=== PATIENT | female | born 1965 | race Caucasian/White ===

== ENCOUNTER 2017-04-09 16:24 | Outpatient (CLI) | payer SELFPAY | END 2017-04-09 16:25 | disposition short-term general hospital (02) | LOC: EMS 16:24 | PROVIDERS: ATTEND Surgery | DX: R53.1 Weakness (principal); R11.10 Vomiting, unspecified | CPT/HCPCS: A0425; A0429 ==

== ENCOUNTER 2017-10-06 18:40 | Emergency (ER) | payer OTHER ==
[2017-10-06] MEDS ORDERED: LIDOCAINE PATCH 5% TOP STA (20:14)
[2017-10-06] MEDS ORDERED: ACETAMINOPHEN 325 MG TABLET PO STA (20:14)
--- NOTE | 2017-10-06 21:04 | XRAY Report ---
Procedure Date: 10/06/2017 Accession Number: [id number] / [id number] Procedure: XR - Thoracic Spine 2 View CPT Code: FULL RESULT: EXAM: THORACIC SPINE RADIOGRAPHY EXAM DATE: 10/06/2017 08:25 PM. CLINICAL HISTORY: Upper thoracic spine pain after an iron fell on back one week ago. COMPARISON: None. TECHNIQUE: 3 views. FINDINGS: Alignment: Mild kyphosis centered at T8. Bones: Old very mild anterior wedging T5-T8. Trabecular and cortical patterns are intact. Disks: Mild narrowing, minimal subcortical sclerosis and tiny osteophytes mid third thoracic disks. Soft Tissues: Normal. The visualized lungs and cardiomediastinal silhouette are normal. IMPRESSION: 1. No acute bony abnormality. 2. Old mild anterior wedging and degenerative disk disease mid third of the mildly kyphotic thoracic spine. RADIA
--- NOTE | 2017-10-06 21:15 | ED Physician Documentation ---
PD HPI BACK INJURY - Stated complaint Stated Complaint: NECK PX - History obtained from History obtained from: Patient - History of Present Illness Location: Upper Type of injury: Blunt / blow Where injury occurred: Work Timing - onset: How many days ago (2) Timing - details: Abrupt onset, Still present Quality: Pain Recently seen: Not recently seen - Additional information Additional information: Patient is a 52 year old female with no significant past medical history who is presenting to the emergency department for back pain after being hit by an iron at work. Patient states it fell out of closet and hit her in her upper back. Now she has pain with lifting. Patient did go to work yesterday because she could not get coverage. Patient denies loc or any other trauma at this time. 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: section HEENT: Tonsil/Adenoidectomy - Present Medications Home Medications: Ambulatory Orders Medication Instructions Recorded Confirmed Lidocaine Patch 5% [Lidoderm Patch] 1 each TOP DAILY #14 patch 10/06/17 - Allergies Allergies/Adverse Reactions: Allergies Allergy/AdvReac Type Severity Reaction Status Date / Time NSAIDS (Non-Steroidal Allergy Unknown Verified 10/06/17 19:04 Anti-Inflamma - Social History Does the pt smoke?: No Smoking Status: Never smoker Does the pt drink ETOH?: No Does the pt have substance abuse?: No PD ED PE NORMAL - Vitals Vital signs reviewed: Yes - General General: Alert and oriented X 3 - HEENT HEENT: Atraumatic - Cardiac Cardiac: RRR - Respiratory Respiratory: No respiratory distress - Abdomen Abdomen: Non distended - Derm Derm: Normal color - Extremities Extremities: No deformity PD ED PE EXPANDED - Back Back: Vertebral tenderness (tenderness to palpation of upper thoracic region, no step offs appreciated) Results - Vitals Vitals: Vital Signs - 24 hr 10/06/17 18:45 Temperature 36.1 C L Heart Rate 76 Respiratory 16 Rate Blood Pressure 132/77 H O2 Saturation 99 Oxygen O2 Source Room air - Rads (name of study) thoracic spine Radiology: Final report received (no acute fracture or dislocation) PD MEDICAL DECISION MAKING - ED course Complexity details: reviewed old records, reviewed results, re-evaluated patient , considered differential, d/w patient ED course: patient was seen and examined at bedside. patient was treated with tylenol and lidoderm patch. imaging was ordered. when patient returned from imaging the results were reviewed. there was no acute fracture or dislocation. patient required no further work up at this time and was stable for discharge with outpatient follow up. - Sepsis Event Vital Signs: Vital Signs - 24 hr 10/06/17 18:45 Temperature 36.1 C L Heart Rate 76 Respiratory 16 Rate Blood Pressure 132/77 H O2 Saturation 99 Oxygen O2 Source Room air Departure - Departure Disposition: 01 Home, Self Care Clinical Impression: Contusion, back Condition: Good Instructions: ED Contusion Back Follow-Up: primary,care provider [Other] - As Needed Prescriptions: Lidocaine Patch 5% [Lidoderm Patch] 1 each TOP DAILY #14 patch Comments: Your diagnostics today were within normal limits. there is no acute fracture or dislocation. you can take tylenol as needed for pain as well as ice and heat. you can apply lidoderm patches as well. It is important that you stay active so to help avoid muscle spasm. you should follow up with your doctor if your symptoms persist. Forms: Activity restrictions
[2017-10-06 21:24] VITALS: BP 120/77
== END 2017-10-06 21:24 | disposition home or self-care (01) ==
LOC: ED 18:40
DX: S20.229A Contusion of unspecified back wall of thorax, initial encounter (principal); W20.8XXA Other cause of strike by thrown, projected or falling object, initial encounter; Y99.0 Civilian activity done for income or pay
CPT/HCPCS: 72070; 99283; A9270; 1040M

== ENCOUNTER 2018-05-18 17:17 | Emergency (ER) | payer OTHER ==
[2018-05-18 17:35] VITALS: BP 136/84
--- NOTE | 2018-05-18 17:53 | ED Physician Documentation ---
PD HPI LOWER EXT INJURY - Stated complaint Stated Complaint: R KNEE PX - Chief complaint Chief Complaint: Ext Problem - History obtained from History obtained from: Patient - History of Present Illness PD HPI LOW EXT INJURY LOCATION: Right, Knee Type of injury: Blunt / blow (She states a door at work was forcefully open and struck her on the anterolateral aspect of the right knee. She had localized swelling and pain. She is having difficulty with walking on it. She states it hurts and feels somewhat locked for flexion and feels like it needs to "pop". She is continue with pain on it and limping and having limited range of motion for the past couple of days.) Timing - onset: How many days ago (2) Timing - duration: Days (2) Timing - details: Abrupt onset, Still present Improved by: Rest. No: Ice Worsened by: Moving, Palpating, Other (walking) Associated symptoms: Swelling. No: Weakness, Numbness Similar symptoms before: Has not had sx before Recently seen: Not recently seen Review of Systems Constitutional: denies: Fever, Myalgias Skin: denies: Abrasion (s), Laceration (s) Musculoskeletal: denies: Back pain Neurologic: reports: Numbness (some on anterior right lower leg.). 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: section, Tubal ligation HEENT: Tonsil/Adenoidectomy - Present Medications Home Medications: Ambulatory Orders Medication Instructions Recorded Confirmed Tramadol HCl 50 mg PO Q6H PRN #15 tablet 05/18/18 - Allergies Allergies/Adverse Reactions: Allergies Allergy/AdvReac Type Severity Reaction Status Date / Time NSAIDS (Non-Steroidal Allergy Unknown Verified 05/18/18 17:35 Anti-Inflamma - Social History Does the pt smoke?: No Smoking Status: Never smoker Does the pt drink ETOH?: No Does the pt have substance abuse?: No - Immunizations Immunizations are current?: Yes PD ED PE NORMAL - Vitals Vital signs reviewed: Yes - General General: Alert and oriented X 3, No acute distress, Well developed/nourished - Back Back: No spinal TTP - Derm Derm: Normal color, Warm and dry - Extremities Extremities: Other (right knee with anterior swelling and anterior effusion. No articular effusion per se. Tenderness anteriorly. She can extend the leg and is holding it fairly straight. Says it hurts to flex the knee. Passive ROM guarded. No noted laxity nor pain with ligament testing, but unable to really get flexed/unguarded exam. ) - Neuro Neuro: Alert and oriented X 3, No motor deficit, No sensory deficit Results - Vitals Vitals: Vital Signs - 24 hr 05/18/18 17:28 Temperature 36.7 C Heart Rate 87 Respiratory 16 Rate Blood Pressure 136/84 H O2 Saturation 99 Oxygen O2 Source Room air - Rads (name of study) right knee Radiology: Prelim report reviewed (No fractures. There are anterior and post erior loose bodies on lateral view and these are also seen on other views that are rounded and smooth and appear old osteochondral injury. They do not appear to be new fractures.), See rad report PD MEDICAL DECISION MAKING - ED course Complexity details: reviewed results, considered differential (Anterior knee contusion. However she has more significant pain with walking and flexing than would be expected with just the bruising. X-ray did not show any obvious fractures. There is some arthritic changes and loose bodies. I would consider the possibility of meniscal injury or even some locking type mechanism with the loose bodies. We will put her in a knee brace and crutches with some pain medicines and have her follow-up with orthopedics later this week.), d/w patient ED course: Minimal standing and walking for 5-6 days. Knee brace when up and around and crutches as needed until follow-up. Departure - Departure Disposition: 01 Home, Self Care Clinical Impression: Contusion of right knee Qualifiers: Encounter type: initial encounter Qualified Code(s): S80.01XA - Contusion of right knee, initial encounter Acute meniscal injury of knee Qualifiers: Encounter type: initial encounter Laterality: right Qualified Code(s): S83.8X1A - Sprain of other specified parts of right knee, initial encounter Condition: Stable Record reviewed to determine appropriate education?: Yes Instructions: ED Meniscal Injury Knee Poss Follow-Up: [facility] [Provider Group] Prescriptions: Tramadol HCl 50 mg PO Q6H PRN #15 tablet PRN Reason: Pain Print Language: Yi Comments: There are no fractures seen on your x-ray. You do have some signs of some prior arthritis in the knee and this may be causing extra pain in it from the injury. The x-ray does not show other tissue and there such as the cartilage. You may have some injury of the cartilage and causing the difficulty with movement. We will have you use the knee brace when up and around and crutches to take off some of the weight. Use Tylenol or tramadol if needed for pains. Call the orthopedic office tomorrow for a follow-up appointment later this week or early next week to reassess the knee after the swelling has gone down. Forms: Activity restrictions
--- NOTE | 2018-05-18 19:10 | XRAY Report ---
Reason: trauma Procedure Date: 05/18/2018 Accession Number: [id number] / [id number] Procedure: XR - Knee 4 View RT CPT Code: FULL RESULT: EXAM: RIGHT KNEE RADIOGRAPHY EXAM DATE: 05/18/2018 06:22 PM. CLINICAL HISTORY: Trauma. COMPARISON: None available. TECHNIQUE: 4 views. FINDINGS: Bones: No acute fracture or dislocation. Fabella in the popliteal fossa. Joints: Trace joint effusion. There is narrowing of the medial and patellofemoral joint spaces with small marginal osteophyte formation. There are rounded ossified densities measuring up to 5 mm projecting in the anterior and posterior joint recesses. Soft Tissues: Unremarkable. IMPRESSION: No acute fracture or dislocation of the right knee. Trace joint effusion. Probable ossified intracapsular bodies, which may represent changes from remote trauma or possibly synovial osteochondromatosis. This could be further evaluated with MRI. Mild to moderate degenerative joint disease. Kellgren Holger Grade 2. Kellgren and Holger classification of osteoarthritis: Grade 0: no radiographic features of osteoarthritis are present Grade 1: doubtful joint space narrowing (JSN) and possible osteophytic lipping Grade 2: definite osteophytes and possible JSN on anteroposterior weight-bearing radiograph Grade 3: multiple osteophytes, definite JSN, sclerosis, possible bony deformity Grade 4: large osteophytes, marked JSN, severe sclerosis and definite bony deformity RADIA
== END 2018-05-18 19:35 | disposition home or self-care (01) ==
LOC: ED 17:17
DX: S80.01XA Contusion of right knee, initial encounter (principal); S83.8X1A Sprain of other specified parts of right knee, initial encounter; W22.8XXA Striking against or struck by other objects, initial encounter; Y99.0 Civilian activity done for income or pay
CPT/HCPCS: 1040M; 73564; 99283

== ENCOUNTER 2020-05-27 11:23 | Emergency (ER) | payer SELFPAY ==
--- NOTE | 2020-05-27 11:49 | ED Physician Documentation ---
PD HPI URI - Stated complaint Stated Complaint: C POSITIVE - Chief complaint Chief Complaint: Resp - History obtained from History obtained from: Patient - History of Present Illness Timing - onset: How many weeks ago (2) Timing duration: Weeks (2) Timing details: Abrupt onset, Still present (worse the past 4 days. Started with illness, along with her , and got tested by [facility] per pts on May 18 and told positive on . They have been quarantined together since then. Worse symptoms with breathing and chest pain the past 4 days. Having nausea/diarrhea, poor intake.) Associated symptoms: Fever, Chills, Nasal congestion, Dry cough, Dyspnea, NVD. No: Hemoptysis, Bilateral edema Contributing factors: Sick contact (she and presumed got sick through extended family members.). 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: section, Tubal ligation HEENT: Tonsil/Adenoidectomy - Present Medications Home Medications: Ambulatory Orders Medication Instructions Recorded Confirmed Tramadol HCl 50 mg PO Q6H PRN #15 tablet 05/18/18 Albuterol Sulf [Ventolin Hfa 3 - 4 puffs INH Q4HR PRN #1 inhaler 05/27/20 Inhaler] HYDROcod/ACETAM 5/325 [Jasper 5/325] 1 ea PO Q6H PRN #18 tablet 05/27/20 Ondansetron Odt [Zofran] 4 mg TL Q6H PRN #10 tablet 05/27/20 dexAMETHasone [Decadron] 4 mg PO DAILY #7 tablet 05/27/20 - Allergies Allergies/Adverse Reactions: Allergies Allergy/AdvReac Type Severity Reaction Status Date / Time NSAIDS (Non-Steroidal Allergy Unknown Verified 05/27/20 11:40 Anti-Inflamma - Living Situation Living Situation: reports: With spouse/s.o. Living Arrangement: reports: At home - Social History Does the pt smoke?: No Smoking Status: Never smoker Does the pt drink ETOH?: No Does the pt have substance abuse?: No - Family History Family history: reports: Non contributory - Immunizations Immunizations are current?: Yes PD ED PE NORMAL - Vitals Vital signs reviewed: Yes (good sats and heart rate. ) - General General: Alert and oriented X 3, Well developed/nourished, Other (appears uncomfortable and with some pain with breathing. ) - HEENT HEENT: Ears normal, Pharynx benign. No: Moist mucous membranes - Neck Neck: Supple, no meningeal sign, No adenopathy - Cardiac Cardiac: RRR, No murmur - Respiratory Respiratory: No: Clear bilaterally (exp wheezing diffusely. No accessory muscle use. Anterior chest wall tenderness to palpation. Some mild crepitant sounds with breathing/cough more to left base. No wet sounds. ) - Abdomen Abdomen: Soft, Non tender - Derm Derm: Normal color, Warm and dry, No rash - Extremities Extremities: No tenderness to palpate, No edema, No calf tenderness / cord - Neuro Neuro: Alert and oriented X 3, No motor deficit, Normal speech Results - Vitals Vitals: Vital Signs - 24 hr 05/27/20 05/27/20 05/27/20 11:40 12:50 13:23 Temperature 36.8 C Heart Rate 89 76 67 Respiratory 24 24 19 Rate Blood Pressure 110/73 116/73 O2 Saturation 100 98 05/27/20 14:44 Temperature 36.6 C Heart Rate 66 Respiratory 18 Rate Blood Pressure 122/76 O2 Saturation 95 Oxygen O2 Source Room air - Labs Labs: Laboratory Tests 05/27/20 12:32 Sodium 145 Potassium 4.3 Chloride 105 Carbon Dioxide 27 Anion Gap 13.0 BUN 19 Creatinine 0.6 Estimated GFR (MDRD) 105 Glucose 106 H Calcium 10.2 Total Bilirubin 0.5 AST 25 ALT 32 Alkaline Phosphatase 42 Total Protein 7.6 Albumin 4.1 Globulin 3.5 Albumin/Globulin Ratio 1.2 Lipase 26 - Rads (name of study) chest xray Radiology: Prelim report reviewed (interstitial changes subtle both sides c/w viral pneumonia. ), See rad report PD MEDICAL DECISION MAKING - ED course Complexity details: reviewed results, re-evaluated patient (improved breathing and general wellness/pain after fluids, MDI and meds. ), considered differential (has COVID with worsening symptoms at 1 1/2 - 2 weeks into illness. Sats are good. Will not need hospitalizing. Seems dehydrated. Given IV fluids, MDIs, and meds for cough/pain. Can give steroids too. Does not meet criteria for Bamvanixamab. ), d/w patient Departure - Departure Disposition: 01 Home, Self Care Clinical Impression: Pneumonia due to COVID-19 virus Dyspnea Qualifiers: Dyspnea type: shortness of breath Qualified Code(s): R06.02 - Shortness of breath Chest pain Qualifiers: Chest pain type: other chest pain Qualified Code(s): R07.89 - Other chest pain Condition: Stable Record reviewed to determine appropriate education?: Yes Instructions: ED URI Viral W Wheezing Follow-Up: [facility] [Provider Group] Prescriptions: Albuterol Sulf [Ventolin Hfa Inhaler] 3 - 4 puffs INH Q4HR PRN #1 inhaler PRN Reason: Shortness Of Air/Wheezing dexAMETHasone [Decadron] 4 mg PO DAILY #7 tablet HYDROcod/ACETAM 5/325 [Jasper 5/325] 1 ea PO Q6H PRN #18 tablet PRN Reason: Pain Ondansetron Odt [Zofran] 4 mg TL Q6H PRN #10 tablet PRN Reason: Nausea / Vomiting Comments: Use the albuterol inhaler 2 to 3 puffs 4 times a day for the next week or so and then as needed based on trouble breathing. Decadron steroid for inflammation of the airways daily for a week. Stay well- hydrated. Use ondansetron if needed for nausea or vomiting. Tylenol if needed for fevers or pains. Add hydrocodone if needed for cough or worse pains. Recheck if not improving well over the next several days to week. Return if worsening. Discharge Date/Time: 05/27/20 15:03
[2020-05-27] MEDS ORDERED: ONDANSETRON 4 MG/2 ML VIAL IVP STA (12:23)
[2020-05-27] MEDS ORDERED: SODIUM CHLORIDE 0.9% 1,000 ML IV STA (12:23)
[2020-05-27] MEDS ORDERED: ALBUTEROL 1 PUFF INH STA (12:23)
[2020-05-27] MEDS ORDERED: BENZONATATE 100 MG CAPSULE PO STA (12:23)
[2020-05-27] MEDS ORDERED: diphenhydrAMINE ELIXIR 25 MG/10 ML UDC PO STA (12:25)
[2020-05-27] MEDS ORDERED: DEXAMETHASONE 10 MG/ML VIAL IVP STA (12:28)
[2020-05-27] MEDS ORDERED: HYDROmorphone 1 MG/ML CARPUJECT IVP STA (12:28)
--- NOTE | 2020-05-27 13:22 | XRAY Report ---
PROCEDURE: Chest 1 View X-Ray INDICATIONS: cough and chest pain TECHNIQUE: One view of the chest was acquired. 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 Lungs and pleura: No pleural effusions or pneumothorax. Subtle patchy bilateral infiltrates. Mediastinum: Mediastinal contours appear normal. Heart size is normal. Bones and chest wall: No suspicious bony lesions. Overlying soft tissues appear unremarkable. IMPRESSION: Subtle patchy bilateral infiltrates are consistent with viral pneumonia. Reviewed by: Adrian Bello MD on 05/27/2020 12:20 PM [facility] Approved by: Adrian Bello MD on 05/27/2020 12:20 PM [facility] Station ID: [id number]
[2020-05-27 13:39] LABS: ALBUMIN 4.1 g/dL (3.2-5.5); ALBUMIN/GLOBULIN RATIO 1.2 (1.0-2.2); BILIRUBIN,TOTAL 0.5 mg/dL (0.2-1.0); CALCIUM 10.2 mg/dL (8.5-10.3); CREATININE 0.6 mg/dL (0.4-1.0); POTASSIUM 4.3 mmol/L (3.5-5.0); TOTAL PROTEIN 7.6 g/dL (6.7-8.2)
[2020-05-27 14:45] VITALS: BP 122/76
== END 2020-05-27 15:03 | disposition home or self-care (01) ==
LOC: ED 11:23
DX: U07.1 COVID-19 (principal); J12.82 Pneumonia due to coronavirus disease 2019
CPT/HCPCS: 36415; 71045; 80053; 83690; 94640; 96374; 96375; 99284; A9270; J1170

== ENCOUNTER 2021-02-24 15:24 | Emergency (ER) | payer SELFPAY ==
[2021-02-24 16:15] LABS: BASOPHILS % (AUTO) 0.3 %; EOSINOPHILS # (AUTO) 0.1 10^3/uL (0.0-0.7); EOSINOPHILS % (AUTO) 0.8 %; HCT - HEMATOCRIT 36.8 % (37.0-47.0); HGB - HEMOGLOBIN 12.5 g/dL (12.0-16.0); LYMPHOCYTES # (AUTO) 2.5 10^3/uL (1.5-3.5); LYMPHOCYTES % (AUTO) 26.5 %; MEAN CORPUSCULAR HEMOGLOBIN 33.7 pg (27.0-31.0); MEAN CORPUSCULAR VOLUME 99.2 fL (81.0-99.0); MEAN PLATELET VOLUME 10.8 fL (7.9-10.8); MONOCYTES # (AUTO) 0.8 10^3/uL (0.0-1.0); MONOCYTES % (AUTO) 8.4 %; NEUTROPHILS # (AUTO) 6.1 10^3/uL (1.5-6.6); NEUTROPHILS % (AUTO) 63.7 %; PLT - PLATELET COUNT 300 10^3/uL (130-450); RED BLOOD COUNT 3.71 10^6/uL (4.20-5.40); RED CELL DISTRIBUTION WIDTH 12.1 % (12.0-15.0); WHITE BLOOD COUNT 9.5 x10^3/uL (4.8-10.8)
[2021-02-24 16:27] LABS: ALBUMIN 4.2 g/dL (3.2-5.5); ALBUMIN/GLOBULIN RATIO 1.6 (1.0-2.2); CREATININE 0.7 mg/dL (0.4-1.0); POTASSIUM 3.9 mmol/L (3.5-5.0); TOTAL PROTEIN 6.8 g/dL (6.7-8.2)
[2021-02-24 17:50] LABS: BILIRUBIN,URINE NEGATIVE (NEGATIVE); GLUCOSE, URINE (UA) NEGATIVE (NEGATIVE); KETONES,URINE (UA) NEGATIVE (NEGATIVE); LEUKOCYTE ESTERASE, URINE SMALL (NEGATIVE); NITRITE,URINE NEGATIVE (NEGATIVE); OCCULT BLOOD,URINE NEGATIVE (NEGATIVE); PH,URINE 6.5 PH (5.0-7.5); PROTEIN,URINE NEGATIVE (NEGATIVE); UROBILINOGEN,URINE 0.2 (NORMAL) E.U./dL (NORMAL)
[2021-02-24 17:55] VITALS: BP 116/72
[2021-02-24 17:56] LABS: CLARITY,URINE CLEAR (CLEAR); HCG UR QUAL NEGATIVE
[2021-02-24 17:59] LABS: BACTERIA,URINE Rare /HPF (None Seen); SQUAMOUS EPITHELIAL CELL,UR FEW Squamous (<= Few)
[2021-02-24] MEDS ORDERED: cefTRIAXone 1 GM VIAL IM STA (18:10)
[2021-02-24] MEDS ORDERED: LIDOCAINE 1% 2 ML VIAL MC ONE (18:10)
[2021-02-24] MEDS ORDERED: KETOROLAC 60 MG/2 ML VIAL IM STA (18:11)
--- NOTE | 2021-02-24 18:12 | ED Physician Documentation ---
PD HPI FEMALE - Stated complaint Stated Complaint: BACK PX/SWELLING - Chief complaint Chief Complaint: Abd Pain - History obtained from History obtained from: Patient - History of Present Illness Timing - onset: How many weeks ago (1) Timing - duration: Weeks (1) Timing - details: Gradual onset, Still present Associated symptoms: Back pain, Dysuria, Urinary frequency Contributing factors: No: Similar symptoms before: Diagnosis (UTI) Recently seen: Clinic - Additional information Additional information: 55-year-old Maori-speaking female complains of a weeklong history of urinary urgency frequency and dysuria that was improved with use of Azo. She went in to see someone at the clinic and Misbah Henning was told she did not have an infection at that time and she has now found that the Azo has become ineffective and she has developed some pain in her flank as well as some chills she denies any fever she has had some mild nausea no vomiting. She does indicate that she had some swelling to her feet and hands and face yesterday and this seems a bit better today. She is not had that happen to her previously. Review of Systems Constitutional: reports: Chills. denies: Fever Respiratory: denies: Cough GI: reports: Nausea. denies: Abdominal Pain, Vomiting : reports: Dysuria, Frequency Skin: denies: Rash Musculoskeletal: reports: Back pain, Extremity swelling. 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: section, Tubal ligation HEENT: Tonsil/Adenoidectomy - Present Medications Home Medications: Ambulatory Orders Medication Instructions Recorded Confirmed Tramadol HCl 50 mg PO Q6H PRN #15 tablet 05/18/18 Albuterol Sulf [Ventolin Hfa 3 - 4 puffs INH Q4HR PRN #1 inhaler 05/27/20 Inhaler] HYDROcod/ACETAM 5/325 [Gay 5/325] 1 ea PO Q6H PRN #18 tablet 05/27/20 Ondansetron Odt [Zofran] 4 mg TL Q6H PRN #10 tablet 05/27/20 dexAMETHasone [Decadron] 4 mg PO DAILY #7 tablet 05/27/20 Ondansetron Odt [Zofran] 4 mg TL Q6H PRN #10 tablet 02/24/21 Sulfamethox/Trimeth 800/160 1 each PO BID #14 tablet 02/24/21 [Bactrim Ds] - Allergies Allergies/Adverse Reactions: Allergies Allergy/AdvReac Type Severity Reaction Status Date / Time NSAIDS (Non-Steroidal Allergy Unknown Verified 02/24/21 15:29 Anti-Inflamma - Social History Does the pt smoke?: No Smoking Status: Never smoker Does the pt drink ETOH?: No Does the pt have substance abuse?: No - Immunizations Immunizations are current?: Yes PD ED PE NORMAL - Vitals Vital signs reviewed: Yes (Hypertensive) - General General: No acute distress, Well developed/nourished - HEENT HEENT: Atraumatic, PERRL, EOMI - Neck Neck: Supple, no meningeal sign, No bony TTP - Cardiac Cardiac: RRR, No murmur - Respiratory Respiratory: No respiratory distress, Clear bilaterally - Back Back: No spinal TTP, Other (Bilateral CVA tenderness worse on the right than the left) - Derm Derm: Normal color, Warm and dry, No rash - Extremities Extremities: No deformity, No edema - Neuro Neuro: Alert and oriented X 3, sprinkling system irrigator 2-12 intact, No motor deficit, No sensory deficit, Normal speech Eye Opening: Spontaneous Motor: Obeys Commands Verbal: Oriented GCS Score: 15 - Psych Psych: Normal mood, Normal affect Results - Vitals Vitals: Vital Signs - 24 hr 02/24/21 02/24/21 15:29 17:54 Temperature 36.5 C 37.3 C Heart Rate 93 86 Respiratory 16 18 Rate Blood Pressure 133/88 H 116/72 O2 Saturation 97 99 Oxygen O2 Source Room air - Labs Labs: Laboratory Tests 02/24/21 02/24/21 02/24/21 16:10 16:10 17:40 WBC 9.5 RBC 3.71 L Hgb 12.5 Hct 36.8 L MCV 99.2 H MCH 33.7 H MCHC 34.0 RDW 12.1 Plt Count 300 MPV 10.8 Neut # (Auto) 6.1 Lymph # (Auto) 2.5 [place] # (Auto) 0.8 Eos # (Auto) 0.1 Baso # (Auto) 0.0 Absolute Nucleated RBC 0.00 Nucleated RBC % 0.0 Sodium 142 Potassium 3.9 Chloride 104 Carbon Dioxide 29 Anion Gap 9.0 BUN 19 Creatinine 0.7 Estimated GFR (MDRD) 88 L Glucose 114 H Calcium 9.0 Total Bilirubin 1.0 AST 26 ALT 28 Alkaline Phosphatase 36 L Total Protein 6.8 Albumin 4.2 Globulin 2.6 Albumin/Globulin Ratio 1.6 Lipase 29 Urine Color YELLOW Urine Clarity CLEAR Urine pH 6.5 Ur Specific [place] 1.020 Urine Protein NEGATIVE Urine Glucose (UA) NEGATIVE Urine Ketones NEGATIVE Urine Occult Blood NEGATIVE Urine Nitrite NEGATIVE Urine Bilirubin NEGATIVE Urine Urobilinogen 0.2 (NORMAL) Ur Leukocyte Esterase SMALL H Urine RBC 6-10 H Urine WBC 11-25 H Ur Squamous Epith Cells FEW Squamous Urine Bacteria Rare Ur Microscopic Review INDICATED Urine Culture Comments INDICATED Urine HCG, Qual NEGATIVE PD MEDICAL DECISION MAKING - ED course Complexity details: reviewed results, re-evaluated patient, considered differential, d/w patient ED course: 55-year-old female with urinary symptoms for the past week has flank pain, pyuria, bacteriuria and nausea. She is administered IM rocephin and IM toradal. Departure - Departure Disposition: 01 Home, Self Care Clinical Impression: Pyelonephritis Condition: Stable Instructions: ED Kidney Infec Female Follow-Up: [facility] [Provider Group] Prescriptions: Sulfamethox/Trimeth 800/160 [Bactrim Ds] 1 each PO BID #14 tablet Ondansetron Odt [Zofran] 4 mg TL Q6H PRN #10 tablet PRN Reason: Nausea / Vomiting Print Language: Maori
== END 2021-02-24 18:56 | disposition home or self-care (01) ==
LOC: ED 15:24
DX: N12 Tubulo-interstitial nephritis, not specified as acute or chronic (principal); R11.0 Nausea
CPT/HCPCS: 36415; 80053; 81001; 81003; 81025; 83690; 85025; 87077; 87086; 96372; 99283; 99284

== ENCOUNTER 2023-03-26 07:59 | Outpatient (CLI) | payer OTHER ==
--- NOTE | 2023-03-26 10:57 | XRAY Report ---
PROCEDURE: Knee 3V LT INDICATIONS: SPRAIN OF LEFT KNEE MEDIAL COLLATERAL LIGAMENT TECHNIQUE: 3 views of the knee(s) were acquired. COMPARISON: None. FINDINGS: Bones: No fractures or dislocations. No suspicious bony lesions. Tricompartment degenerative oste ophytes. Minimal joint space loss. Soft tissues: No knee joint effusion. No suspicious soft tissue calcifications or masses. IMPRESSION: Mild degenerative arthritis. No acute bony abnormality. If there remains a high clinical concern for fracture, consider cross-sectional imaging now. If pain persists, consider repeat x-ray in 10-14 days or cross-sectional imaging. Reviewed by: Adrian Bello MD on 03/26/2023 10:56 AM [facility] Approved by: Adrian Bello MD on 03/26/2023 10:56 AM [facility] Station ID: [id number]
== END 2023-03-26 08:00 | disposition home or self-care (01) ==
LOC: DI.N 07:59
PROVIDERS: ATTEND Specialist
DX: S83.412A Sprain of medial collateral ligament of left knee, initial encounter (principal); M17.12 Unilateral primary osteoarthritis, left knee

== ENCOUNTER 2023-11-01 03:50 | Emergency (ER) | payer MEDICAID ==
--- NOTE | 2023-11-01 03:58 | ED Physician Documentation ---
PD HPI URI - Stated complaint Stated Complaint: PERSISTENT COUGH - Chief complaint Chief Complaint: Resp - History obtained from History obtained from: Patient - Additional information Additional information: 58-year-old female presents for nearly 1 month of nonproductive cough. States that it seems to be getting worse over the last week. Has been taking Mucinex for symptoms at home without significant improvement. Denies fevers. 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 Musculoskeletal: None - Past Surgical History Past Surgical History: Yes /FIRE WATCHER: section, Tubal ligation HEENT: Tonsil/Adenoidectomy - Present Medications Home Medications: Ambulatory Orders Medication Instructions Recorded Confirmed Albuterol Sulfate [Proair 90 mcg IH Q4H PRN #1 each 11/01/23 Respiclick] Benzonatate [Tessalon] 100 mg PO TID #30 cap 11/01/23 - Allergies Allergies/Adverse Reactions: Allergies Allergy/AdvReac Type Severity Reaction Status Date / Time NSAIDS (Non-Steroidal Allergy Unknown Verified 11/01/23 04:05 Anti-Inflamma - Social History Does the pt smoke?: No Smoking Status: Never smoker Does the pt drink ETOH?: No Does the pt have substance abuse?: No - Immunizations Immunizations are current?: Yes PD ED PE NORMAL - Vitals Vital signs reviewed: Yes - General General: Alert and oriented X 3, No acute distress, Well developed/nourished - Cardiac Cardiac: RRR, Strong equal pulses - Respiratory Respiratory: No respiratory distress, Other (trace end expiratory wheezes upper lung palacios) - Abdomen Abdomen: Soft, Non tender, Non distended - Derm Derm: Normal color, Warm and dry, No rash - Extremities Extremities: No deformity, No tenderness to palpate, Normal ROM s pain, No edema - Neuro Neuro: Alert and oriented X 3, 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 Patient speaking in complete sentences on exam, vital signs stable. There is trace wheezing auscultated at the end of respiration in the upper palacios. Joshua Giles ordered. Chest x-ray negative for acute findings. Patient received nebulizers and wheezing subsequently resolved. Likely bronchitis. Albuterol and cough medication sent to pharmacy of choice. Patient requested note for work, which was provided Departure - Departure Disposition: 01 Home, Self Care Clinical Impression: Bronchitis Condition: Stable Instructions: ED Bronchitis Asthmatic Prescriptions: Albuterol Sulfate [Proair Respiclick] 90 mcg IH Q4H PRN #1 each PRN Reason: Wheezing Benzonatate [Tessalon] 100 mg PO TID #30 cap Print Language: Czech Forms: PCP List Discharge Date/Time: 11/01/23 05:41
[2023-11-01] MEDS: DEXAMETHASONE 10 MG/ML VIAL PO STA (04:45)
[2023-11-01] MEDS: CHERRY SYRUP 10 ML UDC PO ONE (04:45)
[2023-11-01] MEDS: IPRATROPIUM/ALBUTEROL 3 ML NEB INH STA (04:45)
[2023-11-01 05:50] VITALS: BP 120/60; O2SAT 100
--- NOTE | 2023-11-01 09:51 | XRAY Report ---
PROCEDURE: Chest 2V INDICATIONS: COUGH X 3 WKS TECHNIQUE: 2 views of the chest were acquired. COMPARISON: None. FINDINGS: Surgical changes and devices: None. Lungs and pleura: No pleural effusions or pneumothorax. Lungs are clear. Mediastinum: Mediastinal contours appear normal. Heart size is normal. Bones and chest wall: No suspicious bony lesions. Overlying soft tissues appear unremarkable. A preliminary report is concordant. IMPRESSION: No acute cardiopulmonary process. Reviewed by: Kelly Fairbanks MD on 11/01/2023 8:50 AM [facility] Approved by: Kelly Fairbanks MD on 11/01/2023 8:50 AM [facility] Station ID: [id number]
== END 2023-11-01 05:41 | disposition home or self-care (01) ==
LOC: ED 03:50
DX: J40 Bronchitis, not specified as acute or chronic (principal)
CPT/HCPCS: 71046; 94640; 99283; A9270